=== PATIENT | female | born 1960 | race Caucasian/White ===

== ENCOUNTER → 2017-02-23 | Outpatient (CLI) | payer BC ==
--- NOTE | 2017-02-23 13:42 | RADIOLOGY REPORT PS360 ---
History and Indications: Chest pain, fatigue, family history. Procedure: Patient exercised on Avery protocol 5 minutes and 45 seconds, resting heart rate was 65 bpm, resting blood pressure 136/82, with exercise maximum heart rate achieved was 1 44 bpm which is equal to 100% of the maximum predicted heart rate and a blood pressure was 148/80. Test was stopped due to maximum effort, patient denied any complained of chest pain. Patient has good exercise capacity achieved 10.1mets of workload on treadmill, the blood pressure response to exercise was adequate. Electrocardiogram: Sinus rhythm, with exercise excessive baseline artifact present, less than 1.[address] segment depression noted from the baseline EKG. The EKG portion of the exercise Myoview is negative for ischemia. Cardiac stress and resting SPECT images: Cardiac stress and rest spect images were obtained using technetium 99 Myoview 10.6 mCi at rest and 32.7 mCi at stress, gated SPECT further analysis of segmental wall motion and calculation of the ejection fraction also done. Stress and rest SPECT images show uniform myocardial activity without any segmental perfusion abnormality, computer derived ejection fraction is 58% with no obvious regional wall motion abnormality, right ventricle is normal size and contractility. Conclusion: 1. The EKG portion of the exercise Myoview is negative for ischemia patient has good exercise capacity achieved 10.1mets of workload on treadmill, the blood pressure response to exercise was adequate, there was no exercise-induced chest discomfort. 2. No obvious scintigraphic evidence of reversible ischemia seen, computer derived ejection fraction is 58% with no obvious regional wall motion abnormality, right ventricle is normal size and contractility.
== END ==
LOC: RAD 05:56
DX: R07.2 Precordial pain (principal)
CPT/HCPCS: A9502